=== PATIENT | female | born 1965 | race Caucasian/White ===

== ENCOUNTER 2016-11-25 16:34 | Inpatient (IN) | payer BC ==
[2016-11-25] MEDS ORDERED: ALPRAZolam TAB* 0.5 MG PO ONE (17:24)
[2016-11-25 17:57] LABS: Hematocrit 39 % (35-47); Hemoglobin 12.7 g/dl (12.0-16.0); Mean Corpuscular HGB Conc 33 g/dl (31-36); Mean Corpuscular Hemoglobin 29 pg (27-31); Mean Corpuscular Volume 87 fL (80-97); Mean Platelet Volume 7 um3 (7.4-10.4); Red Blood Count 4.44 10^6/ul (4.0-5.4); Red Cell Distribution Width 14 % (10.5-15); White Blood Count 6.2 10^3/ul (3.5-10.8)
[2016-11-25 18:09] LABS: Albumin 3.8 g/dL (3.2-5.2); BUN/Creatinine Ratio 17.2 (8-20); EGFR Non-African American 109.6 (>60); Globulin 2.9 g/dL (2-4); Potassium 3.6 mmol/L (3.5-5.0); Total Bilirubin 0.4 mg/dL (0.2-1.0); Total Protein 6.7 g/dL (6.4-8.9)
--- NOTE | 2016-11-25 18:32 | RAD ---
Indication: Chest pain. Single frontal view of the chest performed at 1755 hours was reviewed. No prior study is available for comparison. No mediastinal shift is noted. Heart is of normal size and configuration. Lung lomas appear clear. IMPRESSION: NO ACTIVE CARDIOPULMONARY DISEASE IS NOTED.
--- NOTE | 2016-11-25 18:35 | ED ---
Rosa Vinson Alok, scribed for Radha Juarez MD on 11/25/16 at 1746 . HPI Chest Pain - HPI Summary HPI Summary: 51F presents to the ED with CP and lightheadedness at 1530. Pt states her CP lasted for one hour. PMHx includes PTSD and anxiety and states that her CP feels similar to an anxiety attack. Pt also has h/o ETOH abuse. Pt's last ETOH drink was 6 days ago and has been enrolled in [employer] since 2 days ago. Pt takes 100mg Zoloft BID. Pt used to take 1mg Xanax as need twice a day maximum but has not been able to since enrolling in [employer] PMHx includes HLD and former Type II DM until gastric bypass 3 yars ago. Pt also smokes Tobacco and has tried to quit since two days ago. - History of Current Complaint Chief Complaint: EDChestPainROMI Time Seen by Provider: 11/25/16 17:11 Hx Obtained From: Patient Onset/Duration: Started Hours Ago, Atraumatic, Resolved Time of Onset: 15:30 Timing: Lasting Hours Initial Severity: Moderate Current Severity: Moderate Pain Intensity: 8 Pain Scale Used: 0-10 Numeric Aggravating Factor(s): Nothing Alleviating Factor(s): Nothing Associated Signs and Symptoms: Positive: Lightheadedness - Allergy/Home Medications Allergies/Adverse Reactions: Allergies Allergy/AdvReac Type Severity Reaction Status Date / Time No Known Allergies Allergy Verified 11/25/16 18:11 PMH/Surg Hx/FS Hx/Imm Hx Cardiovascular History: Reports: Hx Hypercholesterolemia Psychiatric History: Reports: Hx Anxiety Infectious Disease History: No Infectious Disease History: Denies: Traveled Outside the [place] in Last 30 Days - Family History Known Family History: Positive: Cardiac Disease - Social History Occupation: Employed Full-time Alcohol Use: alcoholism, trying to quit, last drink 6 days ago Hx Substance Use: No Hx Tobacco Use: Yes Smoking Status (MU): Smoker, Current Status Unknown Review of Systems Negative: Fever Positive: Chest Pain Neurological: Other - lightheadedness All Other Systems Reviewed And Are Negative: Yes Physical Exam Triage Information Reviewed: Yes Vital Signs On Initial Exam: Initial Vitals Temp Pulse Resp BP Pulse Ox 98.3 F 72 16 154/98 97 11/25/16 16:35 11/25/16 16:35 11/25/16 16:35 11/25/16 16:35 11/25/16 16:35 Vital Signs Reviewed: Yes Appearance: Positive: Well-Appearing, No Pain Distress Skin: Positive: Warm, Skin Color Reflects Adequate Perfusion, Dry Eyes: Positive: EOMI, SAMI ENT: Positive: Pharynx normal, TMs normal Neck: Positive: Supple, Nontender Respiratory/Lung Sounds: Positive: Clear to Auscultation, Breath Sounds Present. Negative: Rales, Rhonchi, Wheezes Cardiovascular: Positive: RRR, Other - no gallop. Negative: Murmur, Rub Abdomen Description: Positive: Nontender, Soft, Other: - No rebound. Negative: Distended, Guarding Bowel Sounds: Positive: Present Musculoskeletal: Positive: Strength/ROM Intact. Negative: Edema Left, Edema Right Neurological: Positive: Sensory/Motor Intact, Alert, Oriented to Person Place, Time, CN Intact II-III Psychiatric: Positive: Affect/Mood Appropriate Diagnostics - Vital Signs Vital Signs Temp Pulse Resp BP Pulse Ox 11/25/16 16:35 98.3 F 78 16 154/98 97 - Laboratory Lab Results: Lab Results 11/25/16 11/25/16 11/25/16 Range/Units 17:45 17:45 17:45 WBC 6.2 (3.5-10.8) 10^3/ul RBC 4.44 (4.0-5.4) 10^6/ul Hgb 12.7 (12.0-16.0) g/dl Hct 39 (35-47) % MCV 87 (80-97) fL MCH 29 (27-31) pg MCHC 33 (31-36) g/dl RDW 14 (10.5-15) % Plt Count 178 (150-450) 10^3/ul MPV 7 L (7.4-10.4) um3 Neut % (Auto) 64.8 (38-83) % Lymph % (Auto) 19.1 L (25-47) % [place] % (Auto) 11.9 H (1-9) % Eos % (Auto) 2.1 (0-6) % Baso % (Auto) 2.1 H (0-2) % Absolute Neuts (auto) 4.0 (1.5-7.7) 10^3/ul Absolute Lymphs (auto) 1.2 (1.0-4.8) 10^3/ul Absolute Monos (auto) 0.7 (0-0.8) 10^3/ul Absolute Eos (auto) 0.1 (0-0.6) 10^3/ul Absolute Basos (auto) 0.1 (0-0.2) 10^3/ul Absolute Nucleated RBC 0 10^3/ul Nucleated RBC % 0.1 Sodium 135 (133-145) mmol/L Potassium 3.6 (3.5-5.0) mmol/L Chloride 103 (101-111) mmol/L Carbon Dioxide 25 (22-32) mmol/L Anion Gap 7 (2-11) mmol/L BUN 10 (6-24) mg/dL Creatinine 0.58 (0.51-0.95) mg/dL Est GFR ( Amer) 141.0 (>60) Est GFR (Non-Af Amer) 109.6 (>60) BUN/Creatinine Ratio 17.2 (8-20) Glucose 101 H (70-100) mg/dL Lactic Acid 0.8 (0.5-2.0) mmol/L Calcium 9.0 (8.6-10.3) mg/dL Total Bilirubin 0.40 (0.2-1.0) mg/dL AST 17 (13-39) U/L ALT 13 (7-52) U/L Alkaline Phosphatase 59 (34-104) U/L Troponin I 0.00 (<0.04) ng/mL Total Protein 6.7 (6.4-8.9) g/dL Albumin 3.8 (3.2-5.2) g/dL Globulin 2.9 (2-4) g/dL Albumin/Globulin Ratio 1.3 (1-3) Result Diagrams: 11/25/16 17:45 11/25/16 17:45 Lab Statement: Any lab studies that have been ordered have been reviewed, and results considered in the medical decision making process. - Radiology No standard instances Xray Interpretation: No Acute Changes Radiology Interpretation Completed By: Radiologist - EKG 6667 Cardiac Rate: NL - 68 bpm EKG Rhythm: Sinus Rhythm Chest Pain Course/Dx - Course Course Of Treatment: 51 yo with hx of panic attacks and alcoholism in [facility] for treatment stopped drinking on Mon, and smoking on Sat with cp that she attributes to panic attack starting at 330 pm and today and lasting for an hour. given her numerous risk factors of tob, high chol, and obesity and the fact that she can't be ruled out until 930 case was discussed with Dr. Martinez and she was accepted for obv admission - Diagnoses Provider Diagnoses: Chest pain - Provider Notifications Discussed Care Of Patient With: Madonna Martinez - Will admit pt Time Discussed With Above Provider: 17:46 Discharge - Discharge Plan Condition: Stable Disposition: ADMITTED TO [facility] The documentation as recorded by the Rosa kennedy Alok accurately reflects the service I personally performed and the decisions made by me, Radha Juarez MD.
[2016-11-25] MEDS ORDERED: Ondansetron INJ* 2 MG/ML VIAL IV PRN (19:03)
[2016-11-25] MEDS ORDERED: Aspirin Low Dose CHEW TAB* 81 MG PO ONE (19:06)
[2016-11-25] MEDS ORDERED: LORazepam TAB(*) 1 MG PO ONE (19:07)
[2016-11-25] MEDS ORDERED: LORazepam TAB(*) 1 MG PO SCH (20:00)
[2016-11-25] MEDS: Sertraline* 100 MG TAB PO SCH (23:51)
[2016-11-25] MEDS: Acetaminophen TAB* 325 MG PO PRN (23:51)
[2016-11-25] MEDS: Heparin VIAL(*) 5000 UNITS/ML VIAL (FIVE THOUSAND) SUBCUT SCH (23:53)
[2016-11-26] MEDS ORDERED: LORazepam INJ* 2 MG/ML 1 ML VIAL IV PUSH PRN (00:42)
--- NOTE | 2016-11-26 01:08 | HP ---
HISTORY AND PHYSICAL:* DATE OF : 65 ADDENDUM: Mrs. Hopkins is an 51-year-old female with history of recent cessation of alcohol abuse. Currently, [facility] is at [facility]. She presented to the hospital complaining of chest pain. So far , her workup is unremarkable. She is going to be placed on overnight observation and followed up with a stress test in the morning. Her troponin continued to be negative. For further details of the patient's presentation and plan, please see history and physical dictated by Dane Malik NP, on 11/25/16 with which I agree. [id number]/CPS #: [id number] MTDD
[2016-11-26] MEDS: traZODone TAB* 50 MG TAB PO PRN ×2 (01:13→21:30)
--- NOTE | 2016-11-26 01:50 | HP ---
ATTENDING PHYSICIAN ADDENDUM NOW INCLUDED ON THIS REPORT HISTORY AND PHYSICAL: DATE OF ADMISSION: 11/25/16 PRIMARY CARE PROVIDER: Dr. Arnold from [facility]. ATTENDING PHYSICIAN WHILE IN THE HOSPITAL: Madonna Herrera MD* (report dictated by Dane Malik NP) CHIEF COMPLAINT: Chest pain. HISTORY OF PRESENT ILLNESS: Mrs. Hopkins is a 51-year-old female patient. She has a history of osteoarthritis, sleep apnea, diabetes, and hyperlipidemia, but she states she is no longer taking those medications because she did undergo a gastric bypass. She comes in today stating that around 3 o'clock this afternoon , she developed a chest tightness pressure, left side of her chest that went into her jaw with association of nausea and feeling sweaty and feeling short of breath. She states she became very anxious and the symptoms got much worse. They lasted about 30 minutes and then they went away. She says that she was checking into the [facility] to help her with her alcohol addiction. She does state that she is an alcoholic and she was, prior to this, drinking almost on a daily basis. She says that she is also trying to stop smoking. The patient states that she had the discomfort in the chest. She alerted the [facility] members and they sent her to the hospital to be evaluated. She denies having any recent trips or travels. She denies having any chest pain currently. She denies having any abdominal discomfort. There is no nausea currently, but there was and she denies any recent fevers or chills or any recent trips or travel, surgeries, or leg pain. She was evaluated in the ER, and because of her former history of diabetes, hyperlipidemia, and the fact that she was a smoker and the fact that her father had a heart attack at 56, we were asked to evaluate for admission. PAST MEDICAL HISTORY: Significant for: 1. Diabetes. 2. Hyperlipidemia. 3. Osteoarthritis. 4. JAME. PAST SURGICAL HISTORY: 1. She has had gastric bypass. 2. x2. HOME MEDICATIONS: According to her recall include: 1. Zoloft 100 mg p.o. b.i.d. 2. Trazodone 1 tablet p.o. at bedtime. She does not know the dose. 3. She also is taking Sulindac 150 mg p.o. b.i.d. ALLERGIES TO MEDICATIONS: Includes no known drug allergies. FAMILY HISTORY: Mother had a history of cancer. Father had a history of GA. SOCIAL HISTORY: She is a smoker. She has been smoking for about 30 years. She has a history of alcoholism. She quit drinking about a week ago. She denies any other recreational drug use. Her healthcare proxy is her mother, Mary Kay. REVIEW OF SYSTEMS: There is no documented fever. Denied having any significant weight change. There was no double vision. There is no ear discharge. There is no rhinorrhea. There is no sore throat. No thyroid enlargement. She did admit to having chest pain, but it is gone now. She denies having any shortness of breath. Denies having any abdominal pain. There was nausea, but no dysuria. No frequency. No loss of consciousness. No pruritus and no skin ulcerations. Review of 14 systems completed, all others negative. PHYSICAL EXAMINATION GENERAL: At this time, Mrs. Hopkins is a 51-year-old female patient. She is sitting in the ER stretcher. She is morbidly obese and does not appear to be in any acute distress. VITAL SIGNS: Blood pressure 132/82 with a pulse of 72, respirations 20, O2 sat 95%, and temperature 98.3. HEENT: Head is atraumatic and normocephalic. Eyes: EOMs are intact. Sclerae anicteric and not pale. NECK: Supple. Throat: Oral mucosa appears to be moist. No oropharyngeal erythema. LUNGS: Clear to auscultation. No wheezes, rales, or rhonchi. HEART: Sounds S1, S2. Regular rate and rhythm. No murmurs, rubs, or gallops. ABDOMEN: Soft, flat, nontender. Bowel sounds present. EXTREMITIES: Pulses were 2+ throughout. She is able to move all 4 extremities with 5/5 strength. NEUROLOGIC: The patient is awake. She is alert. She is oriented x3. Tongue midline. Reclamation Kettle Tender were equal. No gross focal deficits. SKIN: Grossly intact. DIAGNOSTIC STUDIES/LAB DATA: Labs today revealed a WBC of 6.2, RBC of 4.44, hemoglobin of 12.7, hematocrit of 39, and platelet count of 178. The sodium was 135, potassium 3.6, chloride 103, bicarb 25, BUN 10, creatinine of 0.58, glucose of 101, lactic of 0.8, and calcium 9.0. Total bilirubin 0.4, AST 17, ALT 13, and alk phos 59. Troponin 0. Albumin of 3.8. Chest x-ray shows no active cardiopulmonary disease. There was an EKG today as well, which showed a normal sinus rhythm with a rate of 68. No ST elevations or T- wave inversions were noted. Old medical records were reviewed. ASSESSMENT AND PLAN: Mrs. Hopkins is a 51-year-old female patient coming into the ER today with complaints of chest discomfort. We were asked to evaluate for admission. She will be admitted under observation status for: 1. Chest pain. Again, she does have risk factors. She has a history of diabetes, hyperlipidemia, she is a smoker, and she has a family history. I think at this point, we will go ahead and cycle her troponins, check an EKG in the morning, get lipid panel, A1c in the morning, and do a stress test. We will continue to follow. We will go ahead and put her on aspirin. 2. History of diabetes. Again, we will get an A1c to see how well she has been controlled. Her sugar here is 101. We will monitor. 3. Hyperlipidemia. Check lipid panel in the morning. No statin therapy at this point. 4. Osteoarthritis. In the setting of possible acute coronary syndrome related to this chest pain, I am going to hold her NSAID therapy. 5. Obstructive sleep apnea. Again, she says it has resolved. She can follow with her primary. 6. Anxiety/depression. Continue meds as prescribed. 7. Code status. Full code. 8. Fluids, electrolytes, and nutrition. She can have a heart healthy diet and NPO after midnight. TIME SPENT: Time spent on the admission was 60 minutes; greater than half the time was spent [id number] with the patient obtaining my history and physical, the other half the time was spent going over the plan of care with the patient and implementing the plan of care. I discussed the plan of care with my attending, Dr. Herrera. She is in agreement. DANE MALIK NP ADDENDUM: Mrs. Hopkins is an 51-year-old female with history of recent cessation of alcohol abuse. Currently, she is at the [facility]. She presented to the hospital complaining of chest pain. So far, her workup is unremarkable. She is going to be placed on overnight observation and followed up with a stress test in the morning. Her troponin continued to be negative. For further details of the patient's presentation and plan, please see history and physical dictated by Dane Malik NP, on 11/25/16 with which I agree. MADONNA HERRERA MD CC: Dr. Jacki Arnold* [id number]/CPS #: [id number] [id number]/CPS #: [id number] KYLIE
[2016-11-26 05:23] LABS: Hematocrit 39 % (35-47); Hemoglobin 12.8 g/dl (12.0-16.0); Mean Corpuscular HGB Conc 33 g/dl (31-36); Mean Corpuscular Hemoglobin 29 pg (27-31); Mean Corpuscular Volume 88 fL (80-97); Mean Platelet Volume 7 um3 (7.4-10.4); Red Blood Count 4.46 10^6/ul (4.0-5.4); Red Cell Distribution Width 14 % (10.5-15); White Blood Count 4.1 10^3/ul (3.5-10.8)
[2016-11-26 05:37] LABS: BUN/Creatinine Ratio 16.4 (8-20); Calcium 8.9 mg/dL (8.6-10.3); EGFR African American 149.9 (>60); EGFR Non-African American 116.5 (>60); HDL Cholesterol 51.8 mg/dL; Potassium 3.4 mmol/L (3.5-5.0)
[2016-11-26] MEDS: Heparin VIAL(*) 5000 UNITS/ML VIAL (FIVE THOUSAND) SUBCUT SCH ×3 (05:59→21:29)
[2016-11-26] MEDS: Thiamine TAB* 100 MG TAB PO SCH (07:29)
[2016-11-26] MEDS: Folic Acid TAB* 1 MG PO SCH (07:29)
[2016-11-26] MEDS: Multivitamins/Minerals TAB PO SCH (07:29)
[2016-11-26] MEDS: Sertraline* 100 MG TAB PO SCH ×2 (07:29→21:30)
[2016-11-26] MEDS: Aspirin Low Dose CHEW TAB* 81 MG PO SCH (07:29)
[2016-11-26] MEDS: Acetaminophen TAB* 325 MG PO PRN (09:28)
[2016-11-26] MEDS ORDERED: Aminophylline IV* 25 MG/ML 10 ML VIAL ONE (09:42)
[2016-11-26] MEDS ORDERED: Regadenoson* 0.4 MG/5 ML SYRINGE ONE (09:42)
[2016-11-26] MEDS ORDERED: Lidocaine PATCH 5%* 1 PATCH TRANSDERM SCH (15:00)
[2016-11-26] MEDS: LORazepam TAB(*) 0.5 MG PO PRN ×2 (15:40→21:30)
--- NOTE | 2016-11-26 16:11 | PN ---
Subjective Date of Service: 11/26/16 Interval History: This is a 51 yo obese female who is a current resident of [facility] recovering from alcohol addiction as well as a h/o DM, HLD and JAME for which she no longer takes any medications after gastric bypass. Patient was admitted with complaints of CP. Initial trops and EKG have been unremarkable and she has been chest pain free since admission. Initial stress component of stress test and she requires the resting component tomorrow. Objective Active Medications: Acetaminophen (Tylenol Tab*) 650 mg PO Q4H PRN PRN Reason: FEVER/PAIN Last Admin: 11/26/16 09:28 Dose: 650 mg Aspirin (Aspirin Low Dose Tab*) 81 mg PO DAILY [facility] Last Admin: 11/26/16 07:29 Dose: 81 mg Folic Acid (Folvite Tab*) 1 mg PO DAILY [facility] Last Admin: 11/26/16 07:29 Dose: 1 mg Heparin Sodium (Porcine) (Heparin Vial(*)) 5,000 units SUBCUT Q8HR [facility] Last Admin: 11/26/16 14:00 Dose: 5,000 units Lidocaine (Lidoderm 5% Patch*) 1 patch TRANSDERM .ON 0900 OFF AT 2100 [facility] Last Admin: 11/26/16 15:41 Dose: 1 patch Lorazepam (Ativan Tab(*)) 0.5 mg PO Q4H PRN PRN Reason: ANXIETY Last Admin: 11/26/16 15:40 Dose: 0.5 mg Multivitamins/Minerals (Theragran/Minerals Tab*) 1 tab PO DAILY [facility] Last Admin: 11/26/16 07:29 Dose: 1 tab Ondansetron HCl (Zofran Inj*) 4 mg IV Q6H PRN PRN Reason: NAUSEA Pharmacy Profile Note (Lidocaine Patch Remove*) 1 note N/A 2100 [facility] Sertraline HCl (Zoloft*) 100 mg PO BID [facility] Last Admin: 11/26/16 07:29 Dose: 100 mg Thiamine HCl (Vitamin B-1 Tab*) 100 mg PO DAILY [facility] Last Admin: 11/26/16 07:29 Dose: 100 mg Trazodone HCl (Desyrel Tab*) 150 mg PO BEDTIME PRN PRN Reason: INSOMNIA Last Admin: 11/26/16 01:13 Dose: 150 mg Vital Signs: Temp Pulse Resp BP Pulse Ox 98.3 F 80 16 129/79 98 06/05/17 15:55 11/26/16 15:55 11/26/16 15:55 11/26/16 15:55 11/26/16 15:55 Appearance: Well appearing, in NAD Respiratory: Symmetrical Chest Expansion and Respiratory Effort, Clear to Auscultation Cardiovascular: NL Sounds; No Murmurs; No JVD, RRR Abdominal: NL Sounds; No Tenderness; No Distention Extremities: No Edema Skin: No Rash or Ulcers Neurological: Alert and Oriented x 3 Result Diagrams: 11/26/16 05:03 11/26/16 05:03 Additional Lab and Data: Laboratory Tests 11/25/16 11/25/16 11/25/16 17:45 20:30 23:38 Troponin I 0.00 0.00 0.00 Assess/Plan/Problems-Billing Assessment: This is a 51 yo female who is morbidly obese recovering from alcohol addiction with h/o DM and HLD who presents to c/o CP. - Patient Problems (1) Chest pain Comment: No signs of ACS, initial troponins and EKG are unremarkable, pt is CP free Initial portion of stress test is abnl, awaiting resting portion Cont ASA, start statin/BB (2) Alcoholism Comment: Sober x 1 week Current resident of [facility] No signs of w/d Discontinue WAM monitoring (3) Diabetes Comment: Discontinued meds after gastric bypass HgbA1c 6.1% No indication to restart medications at this time (4) HLD (hyperlipidemia) Comment: TC 202, LDL 102 Start atorvastatin (5) Morbid obesity Comment: BMI 42 h/o gastric bypass (6) JAME (obstructive sleep apnea) Comment: No current tx (7) Full code status (8) DVT prophylaxis Status and Disposition: Maintain observation stay. Awaiting 2nd portion of stress test
[2016-11-26] MEDS ORDERED: hydrOXYzine HCL TAB* 25 MG PO PRN (19:18)
[2016-11-26] MEDS: Lidocaine Patch REMOVE* 1 NOTE MISC SCH (21:29)
[2016-11-26] MEDS: Metoprolol Tartrate TAB* 25 MG PO SCH (21:29)
[2016-11-26] MEDS: Atorvastatin* 40 MG TAB PO SCH (21:29)
[2016-11-27] MEDS: Heparin VIAL(*) 5000 UNITS/ML VIAL (FIVE THOUSAND) SUBCUT SCH ×3 (05:44→20:56)
[2016-11-27] MEDS: Thiamine TAB* 100 MG TAB PO SCH (07:40)
[2016-11-27] MEDS: Multivitamins/Minerals TAB PO SCH (07:40)
[2016-11-27] MEDS: Metoprolol Tartrate TAB* 25 MG PO SCH ×2 (07:40→19:35)
[2016-11-27] MEDS: Aspirin Low Dose CHEW TAB* 81 MG PO SCH (07:41)
[2016-11-27] MEDS: Sertraline* 100 MG TAB PO SCH ×2 (07:41→19:35)
[2016-11-27] MEDS: Folic Acid TAB* 1 MG PO SCH (07:41)
--- NOTE | 2016-11-27 09:11 | RAD ---
Edited for charges. Indication: Chest pain, shortness of breath Myocardial perfusion scan was performed. Pharmacological stress was applied and 25.1 mCi of technetium 99m tetrofosmin was injected for the stress portion of the study. Rest myocardial perfusion was performed with intravenous injection of 26.8 mCi of technetium 99m tetrofosmin. The stress images demonstrates photopenia in the anterior wall. This mostly reverses on the rest images with a small amount of persistent photopenia in the anterior septal wall. The ventricle is normal in size. The ejection fraction at stress is 54% at rest is 56%. Evaluation of wall motion demonstrates hypokinesis of the anterior wall. IMPRESSION: Moderate to large defect in the anterior wall which mostly reverses on the rest images. A small amount of fixed defect is noted in the anteroseptal wall. Hypokinesis of the anterior wall. ASSESSMENT: Intermediate risk Based on imaging criteria from ACC/AHA 2002 Guideline Update for the Management of Patients With Chronic Stable Angina Table 23. Noninvasive Risk Stratification. MTDD
[2016-11-27] MEDS: LORazepam TAB(*) 0.5 MG PO PRN ×3 (09:52→19:36)
--- NOTE | 2016-11-27 11:19 | PN ---
Subjective Date of Service: 11/27/16 Interval History: Patient reports intermittent feelings of anxiety but no additional episodes of chest pain. No SOB, abd pain, n/v. Objective Active Medications: Acetaminophen (Tylenol Tab*) 650 mg PO Q4H PRN PRN Reason: FEVER/PAIN Last Admin: 11/26/16 09:28 Dose: 650 mg Aspirin (Aspirin Low Dose Tab*) 81 mg PO DAILY [facility] Last Admin: 11/27/16 07:41 Dose: 81 mg Atorvastatin Calcium (Lipitor*) 40 mg PO 2100 [facility] Last Admin: 11/26/16 21:29 Dose: 40 mg Folic Acid (Folvite Tab*) 1 mg PO DAILY [facility] Last Admin: 11/27/16 07:41 Dose: 1 mg Heparin Sodium (Porcine) (Heparin Vial(*)) 5,000 units SUBCUT Q8HR [facility] Last Admin: 11/27/16 05:44 Dose: Not Given Hydroxyzine HCl (Atarax Tab*) 25 mg PO Q4H PRN PRN Reason: ANXIETY Lidocaine (Lidoderm 5% Patch*) 1 patch TRANSDERM .ON 0900 OFF AT 2099 [facility] Last Admin: 11/26/16 15:41 Dose: 1 patch Lorazepam (Ativan Tab(*)) 0.5 mg PO Q4H PRN PRN Reason: ANXIETY Last Admin: 11/27/16 09:52 Dose: 0.5 mg Metoprolol Tartrate (Lopressor Tab*) 25 mg PO BID [facility] Last Admin: 11/27/16 07:40 Dose: 25 mg Multivitamins/Minerals (Theragran/Minerals Tab*) 1 tab PO DAILY [facility] Last Admin: 11/27/16 07:40 Dose: 1 tab Ondansetron HCl (Zofran Inj*) 4 mg IV Q6H PRN PRN Reason: NAUSEA Pharmacy Profile Note (Lidocaine Patch Remove*) 1 note N/A 2099 [facility] Last Admin: 11/26/16 21:29 Dose: 1 note Sertraline HCl (Zoloft*) 100 mg PO BID [facility] Last Admin: 11/27/16 07:41 Dose: 100 mg Thiamine HCl (Vitamin B-1 Tab*) 100 mg PO DAILY [facility] Last Admin: 11/27/16 07:40 Dose: 100 mg Trazodone HCl (Desyrel Tab*) 150 mg PO BEDTIME PRN PRN Reason: INSOMNIA Last Admin: 11/26/16 21:30 Dose: 150 mg Vital Signs: Temp Pulse Resp BP Pulse Ox 97.8 F 76 18 144/85 93 11/27/16 07:12 11/27/16 07:12 11/27/16 09:52 11/27/16 07:12 11/27/16 08:54 Appearance: Well appearing, in NAD Respiratory: Symmetrical Chest Expansion and Respiratory Effort, Clear to Auscultation Cardiovascular: NL Sounds; No Murmurs; No JVD, RRR Abdominal: NL Sounds; No Tenderness; No Distention Skin: No Rash or Ulcers Neurological: Alert and Oriented x 3 Result Diagrams: 11/26/16 05:03 11/26/16 05:03 Additional Lab and Data: Laboratory Tests 11/25/16 11/25/16 11/25/16 17:45 20:30 23:38 Troponin I 0.00 0.00 0.00 Assess/Plan/Problems-Billing Assessment: This is a 51 yo female who is morbidly obese recovering from alcohol addiction with h/o DM and HLD who presents to c/o CP. - Patient Problems (1) Chest pain Comment: No signs of ACS, initial troponins and EKG are unremarkable, pt is CP free Stress test demonstrates reversible anterior ischemia Requested cardiology consult for likely cardiac catheterization Cont ASA, statin, BB (2) Alcoholism Comment: Sober x 1 week Current resident of [facility] No signs of w/d Discontinue WAM monitoring (3) Diabetes Comment: Discontinued meds after gastric bypass HgbA1c 6.1% No indication to restart medications at this time (4) HLD (hyperlipidemia) Comment: TC 202, LDL 102 Start atorvastatin (5) Morbid obesity Comment: BMI 42 h/o gastric bypass (6) JAME (obstructive sleep apnea) Comment: No current tx (7) Full code status (8) DVT prophylaxis Status and Disposition: Transition to inpatient, pending cardiology consult
[2016-11-27] MEDS ORDERED: Diazepam TAB(*) 5 MG PO ONE (11:45)
[2016-11-27] MEDS ORDERED: NS 0.9% 1000 ML* 1,000 ML IV SCH (11:45)
[2016-11-27] MEDS ORDERED: diPHENhydraMINE PO* 25 MG PO ONE (11:45)
[2016-11-27] MEDS ORDERED: fentaNYL* 50 MCG/ML 2 ML VIAL (100 MCG VIAL) ONE (12:11)
[2016-11-27] MEDS ORDERED: Midazolam* 1 MG/ML 5 ML VIAL (5 MG) ONE (12:11)
[2016-11-27] MEDS ORDERED: Iohexol 350 (CONTRAST) 200 ML MDV IV ONE (12:12)
[2016-11-27] MEDS ORDERED: Lidocaine 1% INJ* 10 MG/ML 30 ML SDV ONE (12:12)
[2016-11-27] MEDS ORDERED: Heparin 2 UNITS/ML IVPREMIX* 3,000 ML IV ONE (12:12)
--- NOTE | 2016-11-27 12:43 | CONS ---
CARDIAC CONSULTATION: DATE OF CONSULT: 11/27/16 INDICATION FOR CONSULTATION: Chest pain, abnormal stress test. HISTORY OF PRESENT ILLNESS: The patient is a 51-year-old female with a history of obesity, history of gastric bypass surgery, history of diabetes, smoking, alcohol use who came to the hospital because of chest pain. The patient states that every once in a while, she gets a heaviness in her chest. It will radiate up into her jaw and into her shoulder. It usually occurs in stressful situations. It will last approximately 30 minutes and then resolve on its own. It is not associated with exertion. It is not associated with time of day or meals. The patient states that it has occurred a couple of times a month for the past 2 months. She denies any lightheadedness or dizziness. She denies any palpitations. She denies any syncopal episodes. The patient does have a history of alcohol abuse. She has been alcohol free for the past week. She is attempting to abstain. The patient does have a history of smoking. The patient has a history of obesity. The patient did have gastric bypass surgery in the past. In the past, she had severe diabetes and it is much better since her gastric bypass. PAST MEDICAL HISTORY: Significant for: 1. Diabetes. 2. Osteoarthritis. 3. Obstructive sleep apnea. 4. Obesity. 5. Tobacco abuse. PAST SURGICAL HISTORY: 1. Gastric bypass surgery. 2. C-sections x2. MEDICATIONS AT HOME: 1. Zoloft 100 mg b.i.d. 2. Trazodone as directed. ALLERGIES: No known drug allergies. FAMILY HISTORY: Her father had a myocardial infarction at the age of 56. Mother had a history of cancer. SOCIAL HISTORY: She is a previous smoker. She smoked for 30 years. She also has a history of alcohol abuse. She denies any other drug use. REVIEW OF SYSTEMS: Negative for fevers and chills. Negative for changes in bowel or bladder habits. Other 10-point review is unremarkable. PHYSICAL EXAM: Height is 5 feet 6 inches, weight 263 pounds. Temperature 98.5 , heart rate is 73, respiratory rate is 18, oxygen saturation 95% on room air, blood pressure 145/86. Sclerae anicteric. Oropharynx is pink without erythema. Carotids are 2+ without bruits. JVD is normal. Thyroid is normal. Cardiac Exam: S1, S2. Distant heart sounds. No murmurs, rubs or gallops. Lungs are clear to auscultation bilaterally. There is no dullness to percussion. Abdomen is soft, nontender, nondistended with normoactive bowel sounds. Extremities show no edema. She has 2+ pulses throughout. The patient is awake and alert and oriented. She moves all 4 extremities. DIAGNOSTIC STUDIES/LAB DATA: Chemistries within normal limits. CBC within normal limits. Troponins are negative x3. Stress test; she had a chemical nuclear stress today which I personally reviewed. She does have decreased activity in her anterior wall that improves with her rest images. When taken to account for attenuation correction, the degree of defect is not quite as prominent; however, there is still some degree of reversibility to the anterior wall despite attenuation correction. Her ejection fraction is calculated at 56%. There is mild hypokinesis of the anterior wall. IMPRESSION: This is a 51-year-old female with multiple risk factors including diabetes, hypertension, obesity, smoking and family history who came to the hospital because of chest pain. In general, her chest pain does not sound particularly like angina, it is not associated with exertion. However, she does state that this chest pressure does radiate to her jaw and her shoulder. She does have diaphoresis associated with it. Her stress test is concerning for anterior wall ischemia; however, given her breast attenuation, it is difficult to rule out that this is all attenuation that is causing a difference in apparent perfusion to the anterior wall. I discussed this at length with the patient. I discussed with her the risk factors for coronary artery disease. The patient was given a chance of having a cardiac catheterization. She wanted a cardiac catheterization to definitively rule out coronary artery disease. The risks and benefits of the cardiac catheterization were explained in detail and she is willing to proceed. The patient will stay on her current medications. Further recommendations pending the results of her cardiac catheterization. [id number]/[facility] #: [id number] [facility]
[2016-11-27] MEDS: Acetaminophen TAB* 325 MG PO PRN (15:15)
[2016-11-27] MEDS ORDERED: hydrOXYzine HCL TAB* 25 MG PO PRN (17:16)
[2016-11-27] MEDS: traZODone TAB* 50 MG TAB PO PRN (19:35)
[2016-11-27] MEDS: Atorvastatin* 40 MG TAB PO SCH (19:35)
[2016-11-27] MEDS: Lidocaine Patch REMOVE* 1 NOTE MISC SCH (19:38)
[2016-11-28] MEDS: Heparin VIAL(*) 5000 UNITS/ML VIAL (FIVE THOUSAND) SUBCUT SCH (04:56)
[2016-11-28 05:44] LABS: BUN/Creatinine Ratio 20.4 (8-20); EGFR African American 171.2 (>60); EGFR Non-African American 133.1 (>60); Potassium 4.1 mmol/L (3.5-5.0)
--- NOTE | 2016-11-28 07:11 | CATH ---
CC: Belkis Lindseyango, [place] * CARDIAC CATHETERIZATION: DATE OF PROCEDURE: 11/27/16 - ROOM #[id number] PROCEDURE: Cardiac catheterization including left heart catheterization, left ventriculogram, and coronary angiography. INDICATION: Chest pain, abnormal stress test. HISTORY: The patient is a 51-year-old female with a history of hypertension, obesity, diabetes, smoking, and family history of coronary artery disease who was admitted to the hospital with typical chest pain. The patient's stress test showed anterior wall ischemia, cardiac catheterization was recommended. DESCRIPTION OF THE PROCEDURE: The patient was brought to the cardiac catheterization lab in a fasting state. Informed consent had been obtained prior to the procedure. All labs were reviewed. The patient was placed supine on the catheterization table. Both femoral areas were cleaned and draped in the usual fashion. 1% lidocaine was used for local anesthesia. The right femoral artery was entered by a modified Seldinger technique and a 6-Dominican sheath introducer was placed. The patient underwent coronary angiography including a left ventriculogram, coronary angiography using a 6-Dominican pigtail catheter, 6-Dominican JL4 catheter, and a 6-Dominican JR4 catheter. At the end of the procedure, an angiogram of the femoral artery demonstrated normal position of the catheter and a MYNX closure device was deployed. The patient tolerated the procedure well with no complications. A total of 80 cc of Omnipaque dye was used. A total of 1.8 minutes of fluoro time was used. FINDINGS: HEMODYNAMICS: Central aortic blood pressure 150/86 with a mean of 110, left ventricular pressure 160/2 with an end-diastolic pressure of 20. LEFT VENTRICULOGRAM: Left ventricle was normal in size with systolic function. Estimated ejection fraction 60%. There were no focal wall motion abnormalities. Estimated ejection fraction 65%. There is no mitral regurgitation, aortic valve and ascending aorta were normal. CORONARY ARTERIES: 1. Left main: The left main was normal in size. It bifurcated into the LAD and circumflex. There is no evidence of stenosis. 2. Left anterior descending artery: LAD was normal in size. It gave off 2 diagonal vessels. There was no evidence of stenosis. 3. Left circumflex artery: The circumflex artery was normal in size. It gave off to 1 obtuse marginal branch. There is no evidence of stenosis. 4. Right coronary artery: The right coronary artery was a large dominant vessel. It gave off to PDA and posterolateral branch. There was no evidence of stenosis. IMPRESSION: 1. Normal LV size and systolic function. 2. Normal coronary arteries. 3. MYNX closure device to the right femoral artery. RECOMMENDATIONS: The patient will continue on maximum medical therapy. [id number]/[facility] #: [id number] [facility]
--- NOTE | 2016-11-28 09:23 | DS ---
DISCHARGE SUMMARY: DATE OF ADMISSION: 11/25/16 DATE OF DISCHARGE: 11/28/16. PRIMARY CARE PROVIDER: Out of the area. CONSULTING HEALTH CENTER MANAGER: Radames Rebolledo MD. DISCHARGING PROVIDER: JASEN Pantoja. SUPERVISING PHYSICIAN: Gabe Mai MD (dictated by JASEN Pantoja) PRIMARY DISCHARGE DIAGNOSIS: 1. Chest pain - No evidence of acute coronary syndrome and with a false positive stress test and no rmal cardiac catheterization. SECONDARY DIAGNOSES: 1. Alcoholism - Current resident at [facility] and has been sober for approximately 10 days now. No evidence of withdrawal during her hospital stay. 2. Diabetes - Hemoglobin A1c of 6.1% without home medications at this time. 3. Hyperlipidemia - Atorvastatin started. 4. Morbid obesity with a BMI of 42. 5. Obstructive sleep apnea. DISCHARGE MEDICATIONS: 1. Acetaminophen 325 mg p.o. q.6 hours as needed for pain or fever. 2. Clotrimazole with betamethasone apply topically as needed for itching. 3. Docusate one tablet p.o. twice daily as needed for constipation. 4. Hydroxyzine 50 mg p.o. q.6 hours as needed for anxiety. 5. Lidocaine 5% ointment apply topically as needed for pain. 6. Melatonin 5 mg p.o. at bedtime. 7. Multivitamin one tablet p.o. daily. 8. Sulindac 200 mg p.o. twice daily. 9. Trazodone 150 mg p.o. at bedtime. 10. Aspirin 81 mg p.o. daily. 11. Atorvastatin 40 mg p.o. in the evening. 12. Zoloft 100 mg p.o. twice daily. MEDICATION CHANGES: 1. Start atorvastatin. 2. Decrease aspirin to 81 mg daily. HOSPITAL IMAGIN. Chest x-ray shows no acute process. 2. Nuclear stress test is read as an intermediate risk study with moderate-to- large defect in the anterior wall, which is mostly reversible, with associated hypokinesis and an ejection fraction of a bout 55%. 3. Cardiac catheterization showed no coronary artery stenosis, and ventriculogram completed which s howed no focal wall abnormalities and ejection fraction of 65%. HOSPITAL COURSE: This is a 51-year-old female who is morbidly obese with hypertension, hyperlipidem ia, and history of diabetes as well as obstructive sleep apnea, status post gastric bypass, who is a current resident at [facility] rehabilitating from alcohol addiction. She lives in LT[facility], located within [facility], and has been at [facility] for approximately one week. She had been having complaints of in termittent chest pain and pressure for which she presented to the emergency department. Initial lab s were unremarkable, including a negative troponin. Initial EKG showed normal sinus rhythm. The pat ient had some occasional episodes of anxiety, but no additional episode of chest pain during her [facility] stay. She was maintained on continuous telemetry monitoring without significant dysrhythmias. She underwent nuclear stress testing. She required a two-part study due to her size. Study was re ad as an intermediate risk with anterior wall defect with associated hypokinesis, which was mostly r eversible. For this reason, she underwent cardiac catheterization with Dr. Radames Rebolledo. Cardiac catheterization was unremarkable without coronary artery stenosis and a normal left ventriculogram. The patient's chest pain episodes are most likely related to anxiety as she has been having a signif icant amount of anxiety, especially since obtaining sobriety. I discussed some strategies to reduce anxiety, and trying to use hydroxyzine to control her more acute episodes. Hemoglobin A1c was noted to be 6.1%. The patient was previously treated for diabetes, but medicatio ns discontinued after her gastric bypass procedure. No indication to restart medications at this ti mi. Fasting lipid panel demonstrated total cholesterol of 202 and an LDL of 102. Due to multiple r isk factors, I recommend starting atorvastatin. DISPOSITION AND FOLLOWUP PLAN: The patient is being discharged back to [facility]. She requires followup with Dr. Radames Rebolledo in approximately one week. She can followup with her primary care provider after discharge from [facility]. Medication changes as outlined above. I encouraged the patient to kali thomas to work on her sobriety as well as smoking cessation. JASEN PANTOJA [id number]/[facility] #: [id number]
[2016-11-28 09:27] VITALS: BP 140/78
[2016-11-28] MEDS: Aspirin Low Dose CHEW TAB* 81 MG PO SCH (09:28)
[2016-11-28] MEDS: LORazepam TAB(*) 0.5 MG PO PRN (09:28)
[2016-11-28] MEDS: Thiamine TAB* 100 MG TAB PO SCH (09:28)
[2016-11-28] MEDS: Metoprolol Tartrate TAB* 25 MG PO SCH (09:28)
[2016-11-28] MEDS: Multivitamins/Minerals TAB PO SCH (09:28)
[2016-11-28] MEDS: Folic Acid TAB* 1 MG PO SCH (09:29)
[2016-11-28] MEDS: Sertraline* 100 MG TAB PO SCH (09:29)
== END 2016-11-28 10:30 | DRG 756 ==
LOC: EDBD → ED 16:34 → MEDTELE 19:18 → OBSVTOIN 11-27 11:20
PROVIDERS: ADMIT Internal Medicine; ATTEND Physician Assistant
PROC: 4A12XM4 Monitoring of Cardiac Stress, External Approach (ICD-10-PCS; 2016-11-26)
PROC: B2151ZZ Fluoroscopy of Left Heart using Low Osmolar Contrast (ICD-10-PCS; 2016-11-27)
PROC: 4A023N7 Measurement of Cardiac Sampling and Pressure, Left Heart, Percutaneous Approach (ICD-10-PCS; 2016-11-27)
PROC: B41F1ZZ Fluoroscopy of Right Lower Extremity Arteries using Low Osmolar Contrast (ICD-10-PCS; 2016-11-27)
PROC: B2111ZZ Fluoroscopy of Multiple Coronary Arteries using Low Osmolar Contrast (ICD-10-PCS; principal; 2016-11-27 12:00)
DX: F41.9 Anxiety disorder, unspecified (principal); Z68.41 Body mass index [BMI] 40.0-44.9, adult; I10 Essential (primary) hypertension; F43.10 Post-traumatic stress disorder, unspecified; E78.00 Pure hypercholesterolemia, unspecified; F10.20 Alcohol dependence, uncomplicated; Y90.9 Presence of alcohol in blood, level not specified; F17.200 Nicotine dependence, unspecified, uncomplicated; E66.01 Morbid (severe) obesity due to excess calories; E78.5 Hyperlipidemia, unspecified; G47.33 Obstructive sleep apnea (adult) (pediatric); M19.90 Unspecified osteoarthritis, unspecified site; E11.9 Type 2 diabetes mellitus without complications; F32.9 Major depressive disorder, single episode, unspecified; Z79.82 Long term (current) use of aspirin; Z82.49 Family history of ischemic heart disease and other diseases of the circulatory system; Z98.84 Bariatric surgery status; Z80.9 Family history of malignant neoplasm, unspecified
CPT/HCPCS: 36415; 71010; 78452; 80048; 80053; 80061; 83036; 83605; 84484; 85025; 93005; 93017; 93458; 94760; A9270-GY; A9502; C1760; C1887; G0378; J0280; J1644; J2001; J2060; J2250; J2785; J3010